=== PATIENT | female | born 2000 | race Caucasian/White ===

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

== ENCOUNTER → 2022-09-19 | Outpatient (REF) | payer MEDICARE | LOC: M WUC 18:24 | PROVIDERS: ATTEND Physician Assistant | DX: J02.9 Acute pharyngitis, unspecified (principal) ==

== ENCOUNTER → 2023-01-28 | Outpatient (REF) | payer MEDICARE | LOC: M LAB REF 16:23 | PROVIDERS: ATTEND Nurse Practitioner Family | DX: J02.9 Acute pharyngitis, unspecified (principal) ==